=== PATIENT | male | born 1970 | race Caucasian/White ===

== ENCOUNTER 2024-07-30 15:56 | Emergency (ER) | payer OTHER ==
[~2024-07-30] VITALS: Ht 193 cm; Wt 110.5 kg
[2024-07-30 17:01] LABS: BASO % 0.6 % (0.0-1.0); EOS # 0.1 10^3/uL (0.0-0.5); EOS % 1.6 % (0.0-3.0); HEMATOCRIT 40.4 % (42.0-52.0); LYMPH # 2.4 10^3/uL (1.5-5.0); MEAN CORPUSCULAR HEMOGLOBIN 30.3 pg (27.0-33.0); MEAN CORPUSCULAR HGB CONC 34.7 g/dl (32.0-36.5); MEAN CORPUSCULAR VOLUME 87.4 fl (80.0-96.0); MONO # 0.8 10^3/uL (0.0-0.8); MONO % 12.9 % (2.0-8.0); NEUTROPHILS # 2.9 10^3/uL (1.5-8.5); NEUTROPHILS % 46.4 % (36.0-66.0); PLATELET COUNT, AUTOMATED 244 10^3/uL (150-450); RED BLOOD COUNT 4.62 10^6/uL (4.30-6.10); WHITE BLOOD COUNT 6.2 10^3/uL (4.0-10.0)
[2024-07-30 17:13] LABS: INR 0.88; PARTIAL THROMBOPLASTIN TIME 26.6 SECONDS (24.8-34.2); PROTHROMBIN TIME 12.3 SECONDS (12.5-14.5)
[2024-07-30 17:33] LABS: CK-MB VALUE MASS 1.4 NG/ML (<3.6)
[2024-07-30 17:37] LABS: FREE T4 1.02 NG/DL (0.89-1.76); THYROID STIMULATING HORMONE 1.521 uIU/ML (0.55-4.78)
[2024-07-30 17:40] LABS: ALBUMIN 3.6 G/DL (3.2-5.2); ALKALINE PHOSPHATASE 129 U/L (40-129); ALT/SGPT 29 U/L (7.0-40); AST/SGOT 28 U/L (<34); BILIRUBIN,DIRECT < 0.1 MG/DL (<0.4); BILIRUBIN,TOTAL 0.2 MG/DL (0.3-1.2); BLOOD UREA NITROGEN 17 MG/DL (9-23); CALCIUM LEVEL 8.6 MG/DL (8.5-10.1); CARBON DIOXIDE LEVEL 22 MMOL/L (20-31); CHLORIDE LEVEL 105 MMOL/L (98-107); CPK CREATINE PHOSPHOKINASE 282 U/L (46-171); GLOMERULAR FILTRATION RATE > 60.0 (>56); GLUCOSE, FASTING 95 MG/DL (60-100); MB/CK RELATIVE INDEX 0.49 (< OR =4); SODIUM LEVEL 139 MMOL/L (136-145); TOTAL PROTEIN 6.4 G/DL (5.7-8.2)
[2024-07-30] MEDS: ASPIRIN 81MG CHEW TABLET PO ONE (17:59)
[2024-07-30] MEDS ORDERED: SILD20TA50 PO (18:01)
[2024-07-30] MEDS ORDERED: SILD100T PO (18:28)
[2024-07-30] MEDS ORDERED: HOME MED LIST COMPLETE! XX SCH (18:30)
[2024-07-30 18:35] LABS: CK-MB VALUE MASS 1.6 NG/ML (<3.6)
[2024-07-30 18:39] LABS: MB/CK RELATIVE INDEX 0.59 (< OR =4)
[2024-07-30] MEDS ORDERED: NITROGLYCERIN 0.4MG SUBL TABLET SL PRN (20:15)
[2024-07-30] MEDS ORDERED: HEPARIN SOD (PORCINE) 5000UNITS/ML 1ML VIAL/SYRINGE IV PRN (20:15)
[2024-07-30] MEDS: HEPARIN DRIP 25,000 UNITS in IV 1 EA IV SCH (21:30)
[2024-07-30] MEDS: HEPARIN SOD (PORCINE) 5000UNITS/ML 1ML VIAL/SYRINGE IV ONE (21:31)
[2024-07-30] MEDS: PANTOPRAZOLE 40MG VIAL IV SCH (21:33)
[2024-07-30] MEDS: CLOPIDOGREL 300 MG TAB (PLAVIX) PO ONE (21:33)
[2024-07-30] MEDS: ATORVASTATIN 20 MG TAB PO STA (21:34)
[2024-07-30 21:35] VITALS: BP 139/67
[2024-07-30] MEDS: METOPROLOL TART 12.5 MG PER 1/2 TAB PO SCH (21:35)
[2024-07-31 08:11] VITALS: BP 120/73; TEMP 97.1; O2SAT 96
[2024-07-31 10:03] LABS: CHOLESTEROL LEVEL 247 MG/DL (<200); HDL CHOLESTEROL 44.1 MG/DL (>40); NON-HDL-C 202.9 MG/DL; TRIGLYCERIDES LEVEL 433 MG/DL (<150)
== END 2024-07-31 08:13 | disposition short-term general hospital (02) ==
LOC: M ED 15:56
DX: I21.4 Non-ST elevation (NSTEMI) myocardial infarction (principal); I44.4 Left anterior fascicular block; I45.10 Unspecified right bundle-branch block; I45.81 Long QT syndrome; Z88.0 Allergy status to penicillin; Z79.899 Other long term (current) drug therapy
CPT/HCPCS: 71046; 80048; 80061; 80076; 82550; 82553; 84439; 84443; 84484; 85025; 85610; 85730; 93005; 93041; 94760; 96365; 96366; 96375; 99285; J2470